=== PATIENT | male | born 1975 | race African-American/Black ===

== ENCOUNTER 2016-12-29 21:03 | Emergency (ER) | payer OTHER ==
--- NOTE | ~2016-12-29 | CR181 ---
[facility] A Service of [facility] & [facility] RADIOLOGY TEXT RESULTS PATIENT: VALERIO ZAVALA LOCATION: CFTX : 79 UNIT #: [id number] AGE: [address]: Sarah Elliott APRN SEX: M ORDER DR: [id number] [facility] [address] [place], [place] [address] [id number] E MR#: [id number] Acc #: [id number] NAME: VALERIO ZAVALA : 1975 SEX: M STUDY DATE/TIME: 12/29/2016 23:10 UNIT: [facility] ROOM: STUDY DESCRIPTION: CR Lumbar Spine 2 or 3 Views Attending Physician: Sarah Elliott A.P.R.N. Ordering Physician: Sarah Elliott A.P.R.N. Primary Care Physician: Primary Care Physician No MEDICAL IMAGING REPORT This report is preliminary unless electronic signature is present EXAM Lumbar spine series INDICATION Back pain after an injury last night. PROCEDURE Four views of the lumbar spine. COMPARISON None. FINDINGS Lumbar bodies have normal height. Alignment is preserved. Sacroiliac joints are intact. IMPRESSION No acute findings. Dictated by... Myke Hernandez M.D. THIS IS AN ELECTRONICALLY VERIFIED REPORT Myke Hernandez M.D. at 12/30/2016 9:55 PM SRAVANI/smita TD: 12/30/2016 09:12 JOB #: [id number] MEDICAL IMAGING REPORT Page 1 of 1 COPY
--- NOTE | ~2016-12-29 | CR230 ---
[facility] A Service of [facility] & [facility] RADIOLOGY TEXT RESULTS PATIENT: VALERIO ZAVALA LOCATION: CFTX : 79 UNIT #: [id number] AGE: [address]: Sarah Elliott APRN SEX: M ORDER DR: [id number] [facility] [address] [place], [place] [address] [id number] E MR#: [id number] Acc #: [id number] NAME: VALERIO ZAVALA : 1975 SEX: M STUDY DATE/TIME: 12/29/2016 23:08 UNIT: [facility] ROOM: STUDY DESCRIPTION: CR Shoulder Min 2 View Rt Attending Physician: Sarah Elliott A.P.R.N. Ordering Physician: Sarah Elliott A.P.R.N. Primary Care Physician: Primary Care Physician No MEDICAL IMAGING REPORT This report is preliminary unless electronic signature is present EXAM Right shoulder series INDICATION Right shoulder pain after an injury last night. PROCEDURE Four views of the right shoulder. COMPARISON None. FINDINGS No acute fracture. No dislocation. IMPRESSION No acute findings. Dictated by... Myke Hernandez M.D. THIS IS AN ELECTRONICALLY VERIFIED REPORT Myke Hernandez M.D. at 12/30/2016 9:55 PM SRAVANI/smita TD: 12/30/2016 09:11 JOB #: [id number] MEDICAL IMAGING REPORT Page 1 of 1 COPY
--- NOTE | ~2016-12-29 | CR94 ---
[facility] A Service of [facility] & [facility] RADIOLOGY TEXT RESULTS PATIENT: VALERIO ZAVALA LOCATION: CFTX : 79 UNIT #: [id number] AGE: [address]: Sarah Elliott APRN SEX: M ORDER DR: [id number] [facility] [address] [place], [place] [address] [id number] E MR#: [id number] Acc #: [id number] NAME: VALERIO ZAVALA : 1975 SEX: M STUDY DATE/TIME: 12/29/2016 23:06 UNIT: [facility] ROOM: STUDY DESCRIPTION: CR Elbow Min 3 Views Rt Attending Physician: Sarah Elliott A.P.R.N. Ordering Physician: Sarah Elliott A.P.R.N. Primary Care Physician: Primary Care Physician No MEDICAL IMAGING REPORT This report is preliminary unless electronic signature is present EXAM Right elbow series INDICATION Right elbow pain after an injury last night. PROCEDURE Three views of the right elbow. COMPARISON None. FINDINGS No acute fracture or dislocation. IMPRESSION No acute findings. Dictated by... Myke Hernandez M.D. THIS IS AN ELECTRONICALLY VERIFIED REPORT Myke Hernandez M.D. at 12/30/2016 9:55 PM SRAVANI/smita TD: 12/30/2016 09:05 JOB #: [id number] MEDICAL IMAGING REPORT Page 1 of 1 COPY
--- NOTE | ~2016-12-29 | CR21 ---
[facility] A Service of [facility] & [facility] RADIOLOGY TEXT RESULTS PATIENT: VALERIO ZAVALA LOCATION: CFTX : 79 UNIT #: [id number] AGE: [address]: Sarah Elliott APRN SEX: M ORDER DR: [id number] [facility] [address] [place], [place] [address] [id number] E MR#: [id number] Acc #: [id number] NAME: VALERIO ZAVALA : 1975 SEX: M STUDY DATE/TIME: 12/29/2016 23:04 UNIT: [facility] ROOM: STUDY DESCRIPTION: CR Ankle Min 3 Views Rt Attending Physician: Sarah Elliott A.P.R.N. Ordering Physician: Sarah Elliott A.P.R.N. Primary Care Physician: Primary Care Physician No MEDICAL IMAGING REPORT This report is preliminary unless electronic signature is present EXAM Right ankle series INDICATION Right ankle pain after an injury last night. PROCEDURE Three views right ankle. COMPARISON None. FINDINGS No fracture or dislocation. IMPRESSION No acute findings. Dictated by... Myke Hernandez M.D. THIS IS AN ELECTRONICALLY VERIFIED REPORT Myke Hernandez M.D. at 12/30/2016 9:55 PM SRAVANI/smita TD: 12/30/2016 09:04 JOB #: [id number] MEDICAL IMAGING REPORT Page 1 of 1 COPY
== END 2016-12-30 00:25 | disposition home or self-care (01) ==
LOC: CFTX 21:03 → CED 21:03 → CFTX 23:10
DX: S31.000A Unspecified open wound of lower back and pelvis without penetration into retroperitoneum, initial encounter (principal); S41.101A Unspecified open wound of right upper arm, initial encounter; S31.819A Unspecified open wound of right buttock, initial encounter; S93.401A Sprain of unspecified ligament of right ankle, initial encounter; F17.200 Nicotine dependence, unspecified, uncomplicated; V49.00XA Driver injured in collision with unspecified motor vehicles in nontraffic accident, initial encounter; Y92.410 Unspecified street and highway as the place of occurrence of the external cause
CPT/HCPCS: 29405; 72100; 73030; 73080; 73610; 99284